=== PATIENT | female | born 1950 | race Caucasian/White ===

== ENCOUNTER 2017-01-01 08:17 | Inpatient (IN) ==
[2017-01-01] MEDS ORDERED: ONDANSETRON 4 MG/2 ML VIAL IV STA (08:58)
[2017-01-01] MEDS ORDERED: HYDROmorphone 2 MG/1 ML VIAL IV STA (08:58)
[2017-01-01] MEDS ORDERED: HYDROmorphone 2 MG/1 ML VIAL ONE (09:02)
[2017-01-01] MEDS ORDERED: ONDANSETRON 4 MG/2 ML VIAL ONE (09:02)
[2017-01-01 09:18] LABS: Basophils % 0.3 % (0.0-0.8); Eosinophils # 0.1 10*3/uL (0.0-0.87); Eosinophils % 0.9 % (0.00-10.9); Hematocrit 39.1 VOL% (35.7-47.0); Hemoglobin 13.2 GM/DL (12.0-16.0); Immature Granulocytes % 0.4 %; Immature Granulocytes Absolute 0.03 #; Lymphocytes # 1.6 10*3/uL (1.4-4.0); Lymphocytes % 19.6 % (21.3-54.2); Mean Corpuscular HGB Conc 33.8 GM/DL (32-36); Mean Corpuscular Hemoglobin 28 PG (27-34); Mean Corpuscular Volume 82.1 FL (87-102); Mean Platelet Volume 11.7 FL (9.6-12.0); Monocytes # 0.7 10*3/uL (0.11-0.8); Monocytes % 8.9 % (1.7-12.7); Neutrophils # 5.5 10*3/uL (1.4-7.4); Neutrophils % 69.9 % (38.7-73.9); Platelet Count 225 T/CUMM (130-400); Red Blood Count 4.76 MC/CUMM (3.8-5.5); Red Cell Distribution Width 12.6 % (9.3-17.3); White Blood Count 7.9 T/CUMM (4-12)
[2017-01-01 09:21] LABS: Apearance,Urine CLEAR (Clear); Bilirubin,Urine Negative (Negative); Blood, Urine Negative (Negative); Glucose,Urine (UA) Negative (Negative); Ketones,Urine 20 mg/dL (Negative); Mucus,Urine Occasional /LPF (Occasional); Nitrite,Urine Negative (Negative); Protein,Urine Negative; RBC,Urine 1 /HPF (0-4); Squamous Epithelial Cell,Urine Occasional /HPF (0-10); Urine Color Straw (Yellow); Urine Specific Gravity 1.004 (1.001-1.035); Urine Urobilinogen < 2.0 EU/DL (0.2-1.0)
[2017-01-01 09:22] LABS: Albumin 3.5 G/DL (3.4-5.0); Bilirubin,Total 1.2 MG/DL (0.2-1.0); Calcium 8.9 MG/DL (8.5-10.1); Osmolality,Calculated 280.1 MOS/KG (273-304); Potassium 3.9 MMOL/L (3.5-5.1); Total Protein 6.5 G/DL (6.4-8.3)
--- NOTE | 2017-01-01 10:08 | CT Report ---
History: Left lower quadrant abdominal pain Date: 01/01/2017 Study: CT abdomen and pelvis with IV contrast Comparison exam: September 02, 2016 CT abdomen and pelvis without contrast Technique: Spiral CT sections were obtained from the lung bases to the pubic symphysis following 100 mL Omnipaque [address] exam was performed using one or more of the following dose reduction techniques: Automated exposure control, adjustment of the mA and/or kV according to patient size, or use of iterative reconstruction technique. CT abdomen: The partially visualized lung bases are clear. There is no gross pleural or pericardial effusion. The gallbladder is surgically absent. The liver, spleen, pancreas, adrenal glands, and kidneys are unremarkable. There is no mel bowel obstruction. There is no evidence of pneumoperitoneum. There is no aortic aneurysm. CT pelvis: There are some loculated areas of air and fluid compatible with abscess formation in the pelvis. There is diverticulosis of the sigmoid colon with some mild wall thickening. The largest fluid pocket measures 36 x 21 mm maximum dimensions in the axial plane, at and to the left of midline. There is also a 24 mm pocket to the right of the midline. Impression: Diverticulitis with some multiloculated pelvic abscess formation PROCEDURE INTERPRETED AT [facility] DEPARTMENT OF RADIOLOGY Final Report Signed by: Dr. Ariela Burden
[2017-01-01] MEDS ORDERED: CIPROFLOXACIN INJ 400 MG in PREMIX 1 EACH IV STA (10:17)
[2017-01-01] MEDS ORDERED: metroNIDAZOLE INJ 500 MG in PREMIX 1 EACH IV STA (10:17)
[2017-01-01] MEDS ORDERED: CIPROFLOXACIN 400 MG/200 ML PREMIX IV ONE (10:21)
--- NOTE | 2017-01-01 10:37 | Emergency Department Note ---
Fazal Chacon Hilary, am scribing for, and in the presence of, Galo Moura MD 09: 02. Zeny Chacon James D, MD, personally performed the services described in this documentation, ascribed by Angie Diehl in my presence, and it is both accurate and complete 926 . Arrival - Arrival Chief Complaint: Abdominal / Flank Pain Stated Complaint: trouble with colon ED Nursing Triage Note: Left lower abd pain and rectal pain - pt is scheduled to have some of her colon removed per Dr Beaver Mode of Arrival: Ambulatory Limitations: No Limitations Source: Patient, RN Notes Reviewed - History of Present Illness HPI Narrative: Pt is a 66 y/o white female presenting to the ED with c/o abdominal pain which onset a week ago. Pt confirms sharp abdominal pains radiating to the back and down to the rectum, dysuria and nausea but denies vomiting, diarrhea or blood in stool. Pt has a PMHx Diverticulitis. Pt states that she scheduled an appt with Dr. Beaver in February for her Diverticulitis. No other complaints or problems stated in the ED. Onset (ago): week(s) Consistency: constant Quality: sharp Date of Last Menstrual Period: hyster Allergies/Adverse Reactions: Allergies Allergy/AdvReac Type Severity Reaction Status Date / Time codeine AdvReac Intermediate Nausea Verified 09/02/16 19:10 Home Medications: Home Medications Medication Instructions Recorded Confirmed Type Aspirin EC Tab 81 mg PO DAILY 11/02/16 11/08/16 History Calcium (Carb)/Vit D 600-400 1 tablet PO DAILY 11/08/16 11/08/16 History [Caltrate 600 + D] Lactobacillus Cmb#7/Fos/Inulin 1 each PO DAILY 11/08/16 11/08/16 History [Probiotic Complex Tablet] Vitamin E Mixed [Vitamin E] 400 unit PO DAILY 11/08/16 11/08/16 History Review of System - Review of System 12 point system: reviewed and no additional remarkable complaints except as stated - Review of System Constitutional: Absent: fever Gastrointestinal: Present: abdominal pain, nausea. Absent: vomiting, diarrhea, hematochezia Genitourinary female: Present: dysuria Medical,Surgical,& Family Hx - Medical History Psychological: No history of: Anxiety Disorders, Bipolar Disorder, Depression, Schizophrenia Neurology: No history of: Seizures HEENT: History of: Eye Problem (Wears glasses) Gastrointestinal: History of: Diverticulitis/ Diverticulosis Reproductive: No history of: Abnormal Pap Smear, Breast Cancer, Reproductive Cancer - Surgical History Cardiac Surgeries: Patient Denies: Cardiac Catheterization Neurologic Surgeries: Patient denies: Neurologic Surgery HEENT Surgeries: Surgical HX of: Thyroid Surgery (2010), Tonsilectomy & Adenoidectomy (Tonsils) Patient denies: Eye Surgery Abdominal Surgeries: Surgical HX of: Abdominal Surgery, Appendectomy, Cholecystectomy Patient denies: Colonoscopy, Gastric Bypass Surgery, EGD, Hernia Repair Reproductive Surgeries: Surgical HX of;: Gynecologic Surgery, Hysterectomy Patient denies;: Genitourinary Surgery Orthopedic Surgeries: Patient denies;: Orthopedic Surgery - Family History Family History: Reports;: Family Cancer (Brother), Family Heart Disease (Mother) Denies;: Family Anesthesia Reaction, Family Diabetes, Family Hypertension, Family Psychiatric Problems, Family Stroke - Social History Smoking Status: Never smoker Frequency of Alcohol Use: None Type of Drug Use: None Exam Physical Examination: GENERAL: This is a well-nourished, well-developed in no apparent distress. VITAL SIGNS: Temperature:97.6 Pulse: 84 Respiratory: 20 Blood Pressure: 100/ 79 02Sat: 100 HEENT: Head is normocephalic and atraumatic. Pupils are equally round and reactive to light. Extraocular movement are intact. Oropharynx is benign with moist mucous membranes. NECK: Neck is soft and supple without tenderness. There are no masses. There is no lymphadenopathy. LUNGS: Lungs are clear to auscultation bilaterally. Chest rises symmetrically. There is no chest wall tenderness. CV: Heart is regular rate and rhythm without murmurs, rubs, or gallops. ABDOMEN: Abdomen is soft, non-tender to palpation. There are no abnormal masses palpated. There is no organomegaly. Bowel sounds are present and active. SKIN: Skin is warm and dry. No rash. EXTREMITIES: Patient has full range of motion without tenderness. There is no pedal edema. NEUROLOGIC: Awake, alert, and oriented x4. Cranial nerves II through XII are grossly intact. There are no motorsensory deficits. PSYCHIATRIC: Normal affect. Normal mood. Vital Signs: Vital Signs Temperature 97.6 F 01/01/17 08:39 Pulse Rate 84 01/01/17 08:39 Respiratory Rate 20 01/01/17 08:39 Blood Pressure 100/79 01/01/17 08:39 O2 Sat by Pulse Oximetry 100 01/01/17 08:20 Course - Consultations Consultation #1: Discussed with Dr. Beaver. Patient will be admitted to his service. Initial orders written for him. He will assume patient's care upon the patient's arrival to the [facility]. Time: 10:36 Results - Labs CBC & BMP: 01/01/17 08:35 01/01/17 08:35 Lab Results: I have reviewed the patients labs - Diagnostic Findings Procedure: CT Abdomen and Pelvis: image reviewed by me, report reviewed by me ( Diverticulitis with multi loculated abscess formation) Disposition Clinical Impression: Diverticulitis Case discussed with: patient Disposition: Still a Patient Condition: Stable Time of Disposition: 10:36
[2017-01-01] MEDS ORDERED: ONDANSETRON 4 MG/2 ML VIAL IV PRN (11:21)
[2017-01-01] MEDS ORDERED: metroNIDAZOLE INJ 500 MG in PREMIX 1 EACH IV SCH (11:21)
[2017-01-01] MEDS ORDERED: ACETAMINOPHEN 325 MG TABLET PO PRN (11:21)
[2017-01-01] MEDS ORDERED: HYDROmorphone 2 MG/1 ML VIAL IV PRN (11:40)
[2017-01-01] MEDS: metroNIDAZOLE INJ 500 MG in PREMIX 1 EACH IV SCH ×2 (11:40→19:05)
[2017-01-01] MEDS: SODIUM CHLORIDE 0.45% 1,000 ML IV SCH ×3 (11:40→23:28)
--- NOTE | 2017-01-01 11:43 | General Surg History&Physical ---
Assessment and Plan (1) Diverticulitis Status: Acute Assessment and plan: Diverticulitis with abscess formation. At this time, we will proceed with bowel rest, IV antibiotics and monitor the patient's progress. Dr. Beaver to follow with additional recommendations as warranted. Current Visit: Yes (2) Prophylactic measure Status: Acute Assessment and plan: #1. DVT ppx: SCD. Add lovenox once surgical decision is clear. #2. GI ppx: PPI daily Current Visit: Yes History of Present Illness Chief complaint: Abdominal pain History of present illness: Ms. Pandey is a 66 year old female with past medical history of diverticulosis- itis presenting to the emergency room with recurrent left lower quadrant abdominal pain. Patient had her first flare of diverticulitis in October 2016 at which time she responded well to IV antibiotics. She actually had surgical intervention planned for February 2017 for partial colectomy of the diseased colon. She began having pain again approximately 1 week ago in the left lower quadrant which was radiating to her rectum. This was waxing and waning until yesterday which became persistent and more severe. She denies associated nausea , vomiting, fever, chills, diarrhea, melena, hematochezia. Last bowel movement was yesterday which is described as "normal." Patient has had interval colonoscopy with Dr. Burden with only findings of left colon diverticulosis and recommendations to follow up for repeat colonoscopy screening in 10 years. Home Medications Medication Instructions Recorded Confirmed Type Aspirin EC Tab 81 mg PO DAILY 11/02/16 11/08/16 History Calcium (Carb)/Vit D 600-400 1 tablet PO DAILY 11/08/16 11/08/16 History [Caltrate 600 + D] Lactobacillus Cmb#7/Fos/Inulin 1 each PO DAILY 11/08/16 11/08/16 History [Probiotic Complex Tablet] Vitamin E Mixed [Vitamin E] 400 unit PO DAILY 11/08/16 11/08/16 History Allergies Allergy/AdvReac Type Severity Reaction Status Date / Time codeine AdvReac Intermediate Nausea Verified 09/02/16 19:10 Medical,Surgical,& Family Hx - Medical History Psychological: No history of: Anxiety Disorders, Bipolar Disorder, Depression, Schizophrenia Neurology: No history of: Seizures HEENT: History of: Eye Problem (Wears glasses) Gastrointestinal: History of: Diverticulitis/ Diverticulosis Reproductive: No history of: Abnormal Pap Smear, Breast Cancer, Reproductive Cancer - Surgical History HEENT Surgeries: Surgical HX of: Thyroid Surgery (2010), Tonsilectomy & Adenoidectomy (Tonsils) Abdominal Surgeries: Surgical HX of: Appendectomy, Cholecystectomy, Colonoscopy (2017 - left colon diverticulosis) Reproductive Surgeries: Surgical HX of;: Gynecologic Surgery, Hysterectomy - Family History Family History: Reports;: Family Cancer (Brother), Family Heart Disease (Mother) - Social History Smoking Status: Never smoker Frequency of Alcohol Use: None Type of Drug Use: None 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) Exam - Constitutional Vitals: Period Temp Pulse Resp BP Sys/Peralta Pulse Ox Last 24 Hr 97.7 F 69 18 125/74 100 General appearance: no acute distress, over weight - Head Head exam: Present: normal inspection, normocephalic, atraumatic - Eye Eye exam: Absent: conjunctival injection, scleral icterus - Neck Neck exam: Present: trachea midline - Respiratory Respiratory exam: Present: clear to auscultation bilaterally - Cardiovascular Cardiovascular exam: Present: RRR - GI/Abdominal GI/Abdominal exam: Present: normal bowel sounds, tenderness (LLQ tenderness; no palpable mass guarding, rigidity or rebound), soft - Extremities Exam Extremities exam: Absent: calf tenderness, edema - Back Exam Back exam: Absent: CVA tenderness (L), CVA tenderness (R) - Neurological Exam Neurological exam: Present: alert, oriented X3 - Skin Skin exam: Present: normal color, warm - Constitutional Constitutional: Present: as per HPI - Cardiovascular Cardiovascular: Absent: chest pain at rest, chest pain with activity, dyspnea on exertion, orthopnea, palpitations - Respiratory Respiratory: Absent: cough, wheezing - Gastrointestinal Gastrointestinal: Present: as per HPI - Genitourinary Genitourinary: Present: dysuria. Absent: hematuria, urinary frequency, urinary hesitancy - Musculoskeletal Musculoskeletal: Absent: arthralgias Hematologic/Lymphatic: Absent: easy bleeding, easy bruising Results - Labs CBC & BMP: 01/01/17 08:35 01/01/17 08:35 - Diagnostic Findings Procedure: CT Abdomen and Pelvis: image reviewed by me, report reviewed by me
[2017-01-01] MEDS: CIPROFLOXACIN INJ 400 MG in PREMIX 1 EACH IV SCH (12:41)
[2017-01-02] MEDS: CIPROFLOXACIN INJ 400 MG in PREMIX 1 EACH IV SCH ×3 (00:49→23:36)
[2017-01-02] MEDS: SODIUM CHLORIDE 0.45% 1,000 ML IV SCH ×3 (04:15→19:59)
[2017-01-02] MEDS: metroNIDAZOLE INJ 500 MG in PREMIX 1 EACH IV SCH ×3 (04:17→19:42)
[2017-01-02] MEDS: PANTOPRAZOLE 40 MG TABLET PO SCH (08:18)
[2017-01-02] MEDS: ASPIRIN EC 81 MG TABLET PO SCH (08:18)
--- NOTE | 2017-01-02 08:24 | General Surgery Progress Note ---
Assessment and Plan (1) Diverticulitis Status: Acute Assessment and plan: Impression: Diverticulitis with abscess Plan: Pain improved. We will continue IV antibiotics. If she continues to improve we can transition her to oral antibiotics and discharge with a CT scan as an outpatient in approximately a week. Will check back on her in the morning and see how she is doing. Current Visit: Yes Subjective Patient reports: Present: no new complaints Narrative: Pain improved. Afebrile. Patient has been tolerating diet. No nausea or vomiting. Exam - Constitutional Vitals: Period Temp Pulse Resp BP Sys/Peralta Pulse Ox Last 24 Hr 97.6 F-99.5 F 64-74 12-20 124-138/69-74 97-100 General appearance: no acute distress - Head Head exam: Present: normocephalic - Neck Neck exam: Present: normal inspection - Respiratory Respiratory exam: Present: clear to auscultation bilaterally - Cardiovascular Cardiovascular exam: Present: RRR - GI/Abdominal GI/Abdominal exam: Present: soft (Improved tenderness in the suprapubic area. No peritoneal signs. Nondistended.) - Extremities Exam Extremities exam: Present: normal inspection - Back Exam Back exam: Present: normal inspection - Neurological Exam Neurological exam: Present: alert, oriented X3 Speech: Present: normal - Skin Skin exam: Present: normal color Results - Labs CBC & BMP: 01/01/17 08:35 01/01/17 08:35
[2017-01-02] MEDS: ENOXAPARIN 40 MG/0.4 ML SYRINGE SUBCUT SCH (08:45)
[2017-01-02 10:37] LABS: Basophils % 0.3 % (0.0-0.8); Eosinophils # 0.1 10*3/uL (0.0-0.87); Hematocrit 35.9 VOL% (35.7-47.0); Immature Granulocytes % 0.3 %; Immature Granulocytes Absolute 0.02 #; Lymphocytes # 1.4 10*3/uL (1.4-4.0); Lymphocytes % 20.7 % (21.3-54.2); Mean Corpuscular HGB Conc 33.4 GM/DL (32-36); Mean Corpuscular Hemoglobin 28 PG (27-34); Mean Corpuscular Volume 83.7 FL (87-102); Mean Platelet Volume 11.5 FL (9.6-12.0); Monocytes # 0.8 10*3/uL (0.11-0.8); Monocytes % 11.9 % (1.7-12.7); Neutrophils # 4.5 10*3/uL (1.4-7.4); Neutrophils % 65.8 % (38.7-73.9); Platelet Count 214 T/CUMM (130-400); Red Blood Count 4.29 MC/CUMM (3.8-5.5); Red Cell Distribution Width 12.5 % (9.3-17.3); White Blood Count 6.8 T/CUMM (4-12)
[2017-01-03] MEDS: metroNIDAZOLE INJ 500 MG in PREMIX 1 EACH IV SCH (04:15)
[2017-01-03] MEDS: SODIUM CHLORIDE 0.45% 1,000 ML IV SCH (04:19)
[2017-01-03 06:07] LABS: Basophils % 0.3 % (0.0-0.8); Eosinophils # 0.1 10*3/uL (0.0-0.87); Eosinophils % 1.7 % (0.00-10.9); Hematocrit 35.2 VOL% (35.7-47.0); Hemoglobin 11.8 GM/DL (12.0-16.0); Immature Granulocytes % 0.3 %; Immature Granulocytes Absolute 0.02 #; Lymphocytes # 1.4 10*3/uL (1.4-4.0); Lymphocytes % 22.6 % (21.3-54.2); Mean Corpuscular HGB Conc 33.5 GM/DL (32-36); Mean Corpuscular Hemoglobin 28 PG (27-34); Mean Corpuscular Volume 84.6 FL (87-102); Mean Platelet Volume 11.2 FL (9.6-12.0); Monocytes # 0.9 10*3/uL (0.11-0.8); Monocytes % 13.7 % (1.7-12.7); Neutrophils # 3.9 10*3/uL (1.4-7.4); Neutrophils % 61.4 % (38.7-73.9); Platelet Count 199 T/CUMM (130-400); Red Blood Count 4.16 MC/CUMM (3.8-5.5); Red Cell Distribution Width 12.5 % (9.3-17.3); White Blood Count 6.3 T/CUMM (4-12)
--- NOTE | 2017-01-03 09:15 | Discharge Summary ---
Hospital Course - Hospital Course Hospital Course: Pt admitted with 2nd occurrence of diverticulitis with multiple small abscesses not amenable to percutaneous drainage. She had no signs/symptoms of systemic illness, only experiencing pain. The pain did improve significantly with IV abx treatment. Throughout stay she tolerated oral intake and activity as well as voided and passed her bowels without difficulty. She was discharged home in good condition on oral abx and f/u with Dr. Beaver in one week for repeat CT scan and evaluation of progress. Planned interval surgical intervention to excise diseased colon. Diagnosis - Discharge Diagnosis (1) Diverticulitis Status: Acute (2) Prophylactic measure Status: Acute Discharge Plan - Discharge Data Disposition: Disch To Home/Self Care Condition at Discharge: Stable Discharge Diet: other (Low residue diet - see attached) Activity: other (Limit activity. No rigorous activity. ) Driving: other (No driving while taking narcotics.) Contact your physician if you experience:: fever over 101, Difficulty voiding, Redness or swelling, Nausea/Vomiting (diarrhea), Shortness of breath, Bleeding, pain uncontrolled by pain medications - Discharge Medications New Ciprofloxacin Tab [Cipro Tab] 500 mg PO BID #28 tablet HYDROcodone/ACETAMIN 7.5-325 [Raymond 7.5-325] 1 tablet PO Q4H PRN #20 tablet PRN Reason: Pain Moderate To Severe (4-10) metroNIDAZOLE TAB [Flagyl Cap/Tab] 500 mg PO TID #42 tablet Continue Calcium (Carb)/Vit D 600-400 [Caltrate 600 + D] 1 tablet PO DAILY Lactobacillus Cmb#7/Fos/Inulin [Probiotic Complex Tablet] 1 each PO DAILY Aspirin EC Tab 81 mg PO DAILY Vitamin E Mixed [Vitamin E] 400 unit PO DAILY - Follow Up or Referral Follow Up: Asim Beaver MD [Physician] - 1 Week - Forms/Instructions Instructions: Diverticulitis (DC), Diverticulitis Diet (DC) Exam - Constitutional Vitals: Period Temp Pulse Resp BP Sys/Peralta Pulse Ox Last 24 Hr 97.6 F-98.6 F 62-71 16-18 125-159/60-91 94-100 General appearance: no acute distress - Head Head exam: Present: normal inspection, normocephalic - Eye Eye exam: Absent: conjunctival injection, scleral icterus - Respiratory Respiratory exam: Present: clear to auscultation bilaterally - Cardiovascular Cardiovascular exam: Present: regular rate and rhythm - GI/Abdominal GI/Abdominal exam: Present: normal bowel sounds, tenderness (minimal LLQ - suprapubic tenderness; no palpable mass), soft. Absent: distended, firm, guarding, rebound - Extremities Exam Extremities exam: Absent: calf tenderness, edema - Neurological Exam Neurological exam: Present: alert, oriented X3 - Psychiatric Psychiatric exam: Present: normal affect, normal mood - Skin Skin exam: Present: normal color, warm Discharge Results Labs on day of discharge: Labs from last 24 hours 01/03/17 01/02/17 05:30 10:11 WBC 6.3 6.8 RBC 4.16 4.29 Hgb 11.8 L 12.0 Hct 35.2 L 35.9 MCV 84.6 L 83.7 L MCH 28 28 MCHC 33.5 33.4 RDW 12.5 12.5 Plt Count 199 214 MPV 11.2 11.5 Neut % (Auto) 61.4 65.8 Lymph % (Auto) 22.6 20.7 L Anderson % (Auto) 13.7 H 11.9 Eos % (Auto) 1.7 1.0 Baso % (Auto) 0.3 0.3 Neut # (Auto) 3.9 4.5 Lymph # (Auto) 1.4 1.4 Anderson # (Auto) 0.9 H 0.8 Eos # (Auto) 0.1 0.1 Baso # (Auto) 0.0 0.0 Immature Gran % 0.3 0.3 Nucleated RBC % 0.0 0.0 Immature Gran # 0.02 0.02 Nucleated RBCs # 0.00 0.00 - Imaging and Cardiology Procedure: CT Abdomen and Pelvis: image reviewed by me, report reviewed by me DS: Provider Date of admission: 01/01/17 10:21 Primary care physician: Noe Ball MD Attending physician on admission: Asim Beaver MD Consults: 01/01/17 12:15 Consult to Pastoral Services [CONS] Routine Comment: Pastoral Screen: Request 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
[2017-01-03] MEDS: PANTOPRAZOLE 40 MG TABLET PO SCH (10:07)
[2017-01-03] MEDS: ASPIRIN EC 81 MG TABLET PO SCH (10:07)
[2017-01-03] MEDS: ENOXAPARIN 40 MG/0.4 ML SYRINGE SUBCUT SCH (10:08)
[2017-01-03 11:48] VITALS: BP 162/86
== END 2017-01-03 11:25 | disposition home or self-care (01) | DRG 392 ==
LOC: N.ED 08:17 → N.EDINP 10:21 → N.3E 11:14
PROVIDERS: ADMIT Surgery; ATTEND Surgery

== ENCOUNTER 2017-02-16 07:46 | Inpatient (IN) ==
[~2017-02-16 07:46] MED LIST: ALVIMOPAN 12 MG CAPSULE PO ONE; cefOXitin 1,000 MG in SODIUM CHLORIDE 0.9% 100 ML IV ONE
[2017-02-16] MEDS ORDERED: ALVIMOPAN 12 MG CAPSULE ONE (08:32)
[2017-02-16] MEDS ORDERED: FAMOTIDINE 20 MG TABLET PO ONE (08:32)
[2017-02-16] MEDS ORDERED: SODIUM CHLORIDE 0.9% 100 ML IV ONE (08:32)
[2017-02-16] MEDS ORDERED: DIAZEPAM 2 MG TABLET PO ONE (08:32)
[2017-02-16] MEDS ORDERED: DIAZEPAM 2 MG TABLET ONE (09:52)
[2017-02-16] MEDS ORDERED: FAMOTIDINE 20 MG TABLET ONE (09:52)
[2017-02-16] MEDS: LACTATED RINGERS 1,000 ML IV SCH ×6 (10:00→22:52)
--- NOTE | 2017-02-16 10:17 | History and Physical Update ---
History and Physical Update - History and Physical H&P was reviewed, the patient examined and there: are no changes in the patients condition since last H&P was completed.
[2017-02-16] MEDS ORDERED: BUPIVACAINE MPF 0.25% /EPI 30 ML VIAL ONE ×2 (10:49→11:40)
[2017-02-16] MEDS ORDERED: LIDOCAINE 1%/EPI INJ 20 ML VIAL ONE (10:50)
[2017-02-16] MEDS ORDERED: GLYCOPYRROLATE 0.4 MG/2 ML VIAL ONE (11:05)
[2017-02-16] MEDS ORDERED: LIDOCAINE 2% 5 ML VIAL ONE (11:05)
[2017-02-16] MEDS ORDERED: LABETALOL 100 MG/20 ML VIAL IV ONE (11:05)
[2017-02-16] MEDS ORDERED: ROCURONIUM 100 MG/10 ML VIAL IV ONE (11:05)
[2017-02-16] MEDS ORDERED: ONDANSETRON 4 MG/2 ML VIAL ONE (11:05)
[2017-02-16] MEDS ORDERED: PROPOFOL 200 MG/20 ML VIAL IV ONE (11:05)
[2017-02-16] MEDS ORDERED: NEOSTIGMINE 10 MG/10 ML VIAL ONE (11:05)
[2017-02-16] MEDS ORDERED: ACETAMINOPHEN 325 MG TABLET PO PRN (13:57)
[2017-02-16] MEDS ORDERED: ONDANSETRON 4 MG/2 ML VIAL IV PRN (13:57)
[2017-02-16 13:59] LABS: Apearance,Urine CLEAR (Clear); Bilirubin,Urine Negative (Negative); Blood, Urine Negative (Negative); Glucose,Urine (UA) Negative (Negative); Ketones,Urine Negative (Negative); Mucus,Urine Occasional /LPF (Occasional); Nitrite,Urine Negative (Negative); Protein,Urine Negative; Squamous Epithelial Cell,Urine Occasional /HPF (0-10); Urine Color Straw (Yellow); Urine Specific Gravity 1.005 (1.001-1.035); Urine Urobilinogen < 2.0 EU/DL (0.2-1.0); WBC,Urine <1 /HPF (0-6)
[2017-02-16] MEDS ORDERED: MIDAZOLAM 2 MG/2 ML VIAL ONE (14:07)
[2017-02-16] MEDS ORDERED: SEVOFLURANE 1 UNIT/15 MINUTE INH ONE (14:08)
[2017-02-16] MEDS ORDERED: ACETAMINOPHEN 1,000 MG/100 ML VIAL IV ONE (14:08)
[2017-02-16] MEDS ORDERED: ePHEDrine 50 MG/ML AMP ONE (14:08)
[2017-02-16] MEDS ORDERED: PROPOFOL 1,000 MG/100 ML BOTTLE IV ONE (14:10)
--- NOTE | 2017-02-16 14:11 | Operative Note ---
Date of procedure: 02/16/17 Pre-op diagnosis: History of complicated diverticulitis with recurrence Post-op diagnosis: same Procedure: Procedure performed: Robotically assisted laparoscopic low anterior resection Procedure in detail: After informed consent was obtained, patient was taken operating suite lies upon the operating table. After general anesthesia was induced abdomen was prepped and draped in usual sterile fashion. After procedural pause local anesthetic infiltrated the skin and subcutaneous tissue above the umbilicus. Incision was made and dissection carried down through skin and soft tissue. Fascia was grasped with Chapin's and elevated. Fascial incision was made. Abdominal cavity was entered bluntly. Finger sweep revealed no adhesions. Chu trocar placed under visualization. Pneumoperitoneum achieved. The camera inserted. Bowel mesentery inspected found to be free of any violation. Next an 8 mm and 12 mm trocar were placed in the right lower quadrant under visualization. 5 mm trocar placed in the left upper quadrant under visualization. The robotic arms were docked and I took control to consult after the patient was placed in Trendelenburg position. There was no active inflammation in the pelvis but there were some adhesions from the sigmoid to the anterior abdominal wall as well as the uterus. These were sharply dissected. Next the sigmoid colon was elevated and the mesentery was dissected identifying the inferior mesenteric artery supply to the sigmoid colon. This was dissected free from the surrounding tissue and transected with the LUIS A robotic stapling device with vascular load. The mesentery supplying the sigmoid colon and rectum was divided using vessel sealer. It was a desmoplastic type reaction involving the colon and pericolonic fat where the previous area of diverticulitis had occurred. Below this on the rectum near the peritoneal reflection there was no significant reaction and the rectum appeared soft. Rectum was transected at this level with a robotic stapler blue load. The colon was then freed along the white line of Toldt and there was adequate mobilization to reach the pelvis to perform a tension-free anastomosis. The Chu trocar was replaced within a Joanie retractor and the end of the rectum was brought through delivering the sigmoid colon out of the abdomen. A pursestring suture device was then placed at the approximate area of the junction of descending colon and sigmoid colon and the colon was transected and the specimen removed. A 28 mm anvil was then placed and secured with the pursestring suture and it was placed back in the abdomen and the Chu trocar was replaced. Pneumoperitoneum reachieved. The anvil easily reach the pelvis under no tension. A 28 mm dilator was inserted without resistance. 28 mm EEA stapler was then advanced and the spike deployed and appeared to come out of the posterior wall of the rectum. The mesentery was further dissected out exposing the wall of the posterior rectum for the anastomosis. The anvil was attached to the spike and the anastomosis completed. There were 2 intact donuts. There was excellent hemostasis. Insufflation performed of the rectum with bulb suction with the anastomosis under water in the proximal portion of colon clamped and there was no bubbling and air was seen moving through the anastomosis. The anastomosis appeared healthy viable and tension-free with no leak. Abdomen was irrigated and suctioned. Irrigant remained clear. Trochars removed his abdomen desufflated. Fascia at the Chu trocar site closed using 0 Vicryl [id number] interrupted suture. Wounds were thoroughly irrigated and suctioned. Incision closed with loco. Sterile dressings applied. Patient was taken recovery room in stable condition. All lap and needle counts correct at the end of the case Anesthesia: ANTONIETTA Surgeon / Physician: Asim Beaver [employer] Teacher: Srini Garcia Estimated blood loss: other (Less than 25 cc) Specimens: other (Sigmoid colon and rectum) Condition: stable Disposition: PACU Discharge Plan - Discharge Medications No Action Lactobacillus Cmb#7/Fos/Inulin [Probiotic Complex Tablet] 1 each PO DAILY Cholecalciferol (Vitamin D3) [Vitamin D3] 2,000 unit PO DAILY Aspirin EC Tab 81 mg PO DAILY Vitamin E Mixed [Vitamin E] 400 unit PO DAILY - Follow Up or Referral - Forms/Instructions
--- NOTE | 2017-02-16 14:28 | Operative Note ---
Date of procedure: 02/16/17 Procedure: This is a anesthesiology physician assistant note for robotic assisted laparoscopic sigmoid colectomy performed by Dr. Ash. I served at the bedside legislative assistant for this procedure. Sigmoid colectomy was performed in the area of disease colon was removed. The colon was mobilized and the anastomosis was performed with a 28 mm EEA stapler that appeared well-perfused and was not twisted. It was not under any tension. The airleak test was negative. Surgeon / Physician: Srini Garcia Discharge Plan - Discharge Medications No Action Lactobacillus Cmb#7/Fos/Inulin [Probiotic Complex Tablet] 1 each PO DAILY Cholecalciferol (Vitamin D3) [Vitamin D3] 2,000 unit PO DAILY Aspirin EC Tab 81 mg PO DAILY Vitamin E Mixed [Vitamin E] 400 unit PO DAILY - Follow Up or Referral - Forms/Instructions
[2017-02-16] MEDS ORDERED: PROPOFOL 1,000 MG/100 ML BOTTLE IV SCH (14:30)
[2017-02-16] MEDS ORDERED: SUGAMMADEX 200 MG/2 ML VIAL IV ONE (14:51)
--- NOTE | 2017-02-16 14:58 | XRay Report ---
Portable chest. Indication: Pneumonia. Comparison: September 02, 2016. The heart is normal in size. Atelectasis has developed at the left lung base. An endotracheal tube is in satisfactory position. The right lung is clear. Surgical clips in the left neck. Surgical clips in the right upper quadrant. Stable osseous structures. Impression: Development of mild left basilar atelectasis. PROCEDURE INTERPRETED AT [facility] DEPARTMENT OF RADIOLOGY Final Report Signed by: Dr. Traci Dent
[2017-02-16] MEDS ORDERED: ROPIVACAINE 0.5% 30 ML VIAL ONE (15:08)
--- NOTE | 2017-02-16 15:58 | Anesthesia Post-Op ---
Anesthesia Post OP - Post Ansesthetic Evaluation Patient seen in post op: Yes Resp: within normal limits CV: within normal limits Mental: within normal limits Temp: within normal limits [id number]: within normal limits Nausea and Vomiting: within normal limits Pain: within normal limits Other:: to icu for observation
[2017-02-16] MEDS: MORPHINE 2 MG/1 ML SYRINGE IV PRN ×2 (16:16→20:33)
[2017-02-17 05:10] LABS: Basophils % 0.3 % (0.0-0.8); Eosinophils % 0.3 % (0.00-10.9); Hematocrit 34.3 VOL% (35.7-47.0); Hemoglobin 11.6 GM/DL (12.0-16.0); Immature Granulocytes % 0.4 %; Immature Granulocytes Absolute 0.03 #; Lymphocytes # 1.2 10*3/uL (1.4-4.0); Lymphocytes % 15.2 % (21.3-54.2); Mean Corpuscular HGB Conc 33.8 GM/DL (32-36); Mean Corpuscular Hemoglobin 28 PG (27-34); Mean Corpuscular Volume 82.7 FL (87-102); Mean Platelet Volume 11.3 FL (9.6-12.0); Monocytes # 0.9 10*3/uL (0.11-0.8); Monocytes % 11.4 % (1.7-12.7); Neutrophils # 5.8 10*3/uL (1.4-7.4); Neutrophils % 72.4 % (38.7-73.9); Platelet Count 172 T/CUMM (130-400); Red Blood Count 4.15 MC/CUMM (3.8-5.5); Red Cell Distribution Width 13.6 % (9.3-17.3)
[2017-02-17 05:38] LABS: Calcium 8.3 MG/DL (8.5-10.1); Osmolality,Calculated 279.1 MOS/KG (273-304); Potassium 3.8 MMOL/L (3.5-5.1)
[2017-02-17] MEDS: LACTATED RINGERS 1,000 ML IV SCH (05:54)
[2017-02-17] MEDS: PANTOPRAZOLE 40 MG TABLET PO SCH (08:19)
--- NOTE | 2017-02-17 10:39 | Event Note ---
General Surgery Progress Note Chief complaint This patient is a 66-year-old woman who underwent robotic assisted laparoscopic sigmoid colectomy for diverticulitis by Dr. Beaver on 02/16/2017 Interval history No events overnight. Patient had some respiratory difficulties postop but she had an uneventful night and is ready for transfer to the floor. She feels thirsty. She denies any flatus or bowel movements yet. Her pain is well controlled. Physical exam The patient is afebrile with normal vital signs Chest is clear Heart is regular Abdomen is soft and non-distended. Hypoactive bowel sounds. Appropriate tenderness with clean incisions. Labs Reviewed Imaging None Assessment and plan Transfer to floor Begin DVT chemoprophylaxis with Lovenox subcu Begin ambulating in the hallway Continue incentive spirometry Clear liquid diet Repeat labs tomorrow Change to maintenance fluid
[2017-02-17] MEDS: ENOXAPARIN 40 MG/0.4 ML SYRINGE SUBCUT SCH (10:57)
[2017-02-17] MEDS: DEXT 5% NACL 0.45% KCL 20 MEQ 20 MEQ/1,000 ML BAG IV SCH ×2 (10:57→22:10)
[2017-02-18 05:44] LABS: Basophils % 0.3 % (0.0-0.8); Eosinophils # 0.1 10*3/uL (0.0-0.87); Eosinophils % 1.3 % (0.00-10.9); Hematocrit 35.1 VOL% (35.7-47.0); Hemoglobin 11.8 GM/DL (12.0-16.0); Immature Granulocytes % 0.3 %; Immature Granulocytes Absolute 0.02 #; Lymphocytes # 1.2 10*3/uL (1.4-4.0); Lymphocytes % 17.3 % (21.3-54.2); Mean Corpuscular HGB Conc 33.6 GM/DL (32-36); Mean Corpuscular Hemoglobin 28 PG (27-34); Mean Corpuscular Volume 82.6 FL (87-102); Mean Platelet Volume 11.6 FL (9.6-12.0); Monocytes # 0.8 10*3/uL (0.11-0.8); Monocytes % 11.6 % (1.7-12.7); Neutrophils # 4.9 10*3/uL (1.4-7.4); Neutrophils % 69.2 % (38.7-73.9); Platelet Count 142 T/CUMM (130-400); Red Blood Count 4.25 MC/CUMM (3.8-5.5); Red Cell Distribution Width 13.6 % (9.3-17.3); White Blood Count 7.1 T/CUMM (4-12)
[2017-02-18 06:13] LABS: Calcium 8.3 MG/DL (8.5-10.1); Magnesium 2.1 MG/DL (1.8-2.4); Osmolality,Calculated 280.1 MOS/KG (273-304); Potassium 3.8 MMOL/L (3.5-5.1)
[2017-02-18] MEDS: DEXT 5% NACL 0.45% KCL 20 MEQ 20 MEQ/1,000 ML BAG IV SCH (06:40)
--- NOTE | 2017-02-18 09:02 | Event Note ---
General Surgery Progress Note Chief complaint This patient is a 66-year-old woman who underwent robotic assisted laparoscopic sigmoid colectomy for diverticulitis by Dr. Beaver on 02/16/2017 Interval history No events overnight. Patient was transferred to the floor yesterday without any issues. She is not passing gas or having bowel movements yet but she is tolerating liquids with no nausea or vomiting. Pain is well controlled. Afebrile with normal vital signs. Has not walked in the hallway yet. She is voiding well after Skel[place] removal yesterday. Physical exam The patient is afebrile with normal vital signs Chest is clear Heart is regular Abdomen is soft and non-distended. Hypoactive bowel sounds. Appropriate tenderness with clean incisions. Dressings removed and left open Labs Reviewed Imaging None Assessment and plan Advance to full liquid diet Ambulate in hallway Wean IV fluids Hopefully discharge home tomorrow if bowel function returned
[2017-02-18] MEDS: VITAMIN E 400 UNIT CAPSULE PO SCH (09:13)
[2017-02-18] MEDS: CHOLECALCIFEROL 1,000 UNIT TABLET PO SCH (09:13)
[2017-02-18] MEDS: ASPIRIN EC 81 MG TABLET PO SCH (09:13)
[2017-02-18] MEDS: PANTOPRAZOLE 40 MG TABLET PO SCH (09:13)
[2017-02-18] MEDS: LACTOBACILLUS CMB PO SCH (09:15)
[2017-02-18] MEDS: FOS PO SCH (09:15)
[2017-02-18] MEDS: INULIN PO SCH (09:15)
[2017-02-18] MEDS: ENOXAPARIN 40 MG/0.4 ML SYRINGE SUBCUT SCH (10:37)
[2017-02-19] MEDS: DEXT 5% NACL 0.45% KCL 20 MEQ 20 MEQ/1,000 ML BAG IV SCH (02:12)
[2017-02-19] MEDS ORDERED: SCOPOLAMINE 1.5 MG PATCH TRANSDERM ONE (05:58)
[2017-02-19] MEDS: VITAMIN E 400 UNIT CAPSULE PO SCH (08:27)
[2017-02-19] MEDS: ASPIRIN EC 81 MG TABLET PO SCH (08:27)
[2017-02-19] MEDS: PANTOPRAZOLE 40 MG TABLET PO SCH (08:27)
[2017-02-19] MEDS: CHOLECALCIFEROL 1,000 UNIT TABLET PO SCH (08:27)
[2017-02-19] MEDS: INULIN PO SCH (08:54)
[2017-02-19] MEDS: LACTOBACILLUS CMB PO SCH (08:54)
[2017-02-19] MEDS: FOS PO SCH (08:54)
--- NOTE | 2017-02-19 10:58 | Event Note ---
Ms. Pandey is a 66-year-old white female with history of diverticulitis who underwent robotic assisted laparoscopic sigmoid colectomy by Dr. Beaver on 2016. Patient feels well and is tolerating a full liquid diet. She is not belching or having any nausea. She has not passed gas or had a bowel movement as of yet. Afebrile vital signs stable, abdomen soft, appropriately tender, incisions look good. Urinating well Assessment and plan DC IV fluids Ambulate the halls multiple times today Regular diet Await return of bowel function, though patient looks really well I am hesitant to DC her home without at least passing flatus. Will reassess her this afternoon for possible DC later today or tomorrow. Discussed with Dr. Beaver
[2017-02-19] MEDS: ENOXAPARIN 40 MG/0.4 ML SYRINGE SUBCUT SCH (11:11)
--- NOTE | 2017-02-19 11:21 | Pathology Report from [facility] ---
[facility] ACCESSION # : [id number] PATIENT NAME : Daisha Pandey ORDERING DR : Asim Beaver MD CLINICAL HX: Diverticulitis POST-OP DX: Same SPECIMEN INFO: Sigmoid colon and donuts GROSS DESCRIPTION: The specimen is received in formalin labeled with the patients name DAISHA PANDEY and consists of a segment of colon measuring 8.0 x 2.0 cm. Opening the colon reveals a few scattered non bleeding diverticuli with no mucosal lesions or perforations seen. Sections submitted: A and B surgical margins, C patient account representative diverticulum. DIAGNOSIS FOR DAISHA PANDEY: COLON, SEGMENTAL RESECTION, 8 cm: Diverticulosis. No evidence of malignancy. COLLECTED DATE: 02/19/2017 [facility] REPORT DATE: 02/19/2017 ELECTRONICALLY SIGNED BY: Amari Molina III, M.D. 02/19/2017 - 9:09:17 [facility] CENTERDayanna
[2017-02-19 11:44] VITALS: BP 138/68
--- NOTE | 2017-02-19 14:29 | Discharge Summary ---
Hospital Course - Hospital Course Hospital Course: Ms. Pandey is a 66-year-old white female with history of recurrent diverticulitis admitted by Dr. Beaver on 02/16/2017 for robotic assisted laparoscopic sigmoid colectomy. Patient has done very well postoperatively. She is tolerating a diet and she had a bowel movement today. She is ambulating in the halls multiple times a day and her incision looks good. She will be discharged home with a 1-2 week follow-up with Dr. Beaver. Complete discharge instructions were given to patient and family in the room. Patient's case was discussed with the patient, family, nursing, and Dr. Garcia. Care coordination, chart review, and completed discharge paperwork took approximately 31 minutes. - Time spent with patient Time with patient DS: Greater than 30 minutes Diagnosis - Discharge Diagnosis (1) History of Recurrent diverticulitis Status: Resolved Specialty Discharge - Follow Up or Referrals Follow up with: Asim Beaver MD [Physician] - 03/05/17 9:45 am Discharge Plan - Discharge Data Disposition: Disch To Home/Self Care Condition at Discharge: Stable Discharge Diet: advance to your usual diet Activity: increase activity as tolerated, no lifting Hygiene: may shower Driving: other (No driving if taking pain medicines) Contact your physician if you experience:: fever over 101, Nausea/Vomiting Wound / Dressing Care Instructions: Okay to shower daily with mild soap and water, pat dry, okay to leave incisions open to air or cover as needed with Band -Aids - Discharge Medications New HYDROcodone/ACETAMIN 7.5-325 [[place] 7.5-325] 1 tablet PO Q4H PRN #30 tablet PRN Reason: Pain Moderate (4-7) Continue Lactobacillus Cmb#7/Fos/Inulin [Probiotic Complex Tablet] 1 each PO DAILY Cholecalciferol (Vitamin D3) [Vitamin D3] 2,000 unit PO DAILY Aspirin EC Tab 81 mg PO DAILY Vitamin E Mixed [Vitamin E] 400 unit PO DAILY - Follow Up or Referral Follow Up: Asim Beaver MD [Physician] - 03/05/17 9:45 am - Forms/Instructions Exam - Constitutional Vitals: Period Temp Pulse Resp BP Sys/P[place]ta Pulse Ox Last 24 Hr 97.6 F-99.5 F 76-84 16-18 138-161/58-83 96-99 Exam: 66-year-old white female, no acute distress, alert and oriented Chest clear CV regular rate and rhythm Abdomen soft, appropriately tender, incisions look good Extremities no edema DS: Provider Date of admission: 02/16/17 07:46 Primary care physician: Noe Ball MD Attending physician on admission: Asim Beaver MD Consults: 02/16/17 16:12 Consult to Pastoral Services [CONS] Routine Comment: Pastoral Screen: Request 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
== END 2017-02-19 15:55 | disposition home or self-care (01) | DRG 331 ==
LOC: N.SDSINP 07:46 → N.OR 07:46 → N.SDSINP 07:49 → EDSTATUS 12:30 → N.ICU 15:57 → N.3E 02-17 12:52 → N.CVR 02-19 12:45
PROVIDERS: ADMIT Surgery; ATTEND Surgery